=== PATIENT | female | born 1960 | race Hispanic/Latino ===

== ENCOUNTER 2016-07-08 08:24 | Day surgery (SDC) | payer MEDICAID ==
[2016-04-10 08:13] VITALS: BMI 20.5
[2016-07-08] MEDS: Lactated Ringer's 500 ML IV ONE (11:22)
[2016-07-08 11:59] VITALS: O2SAT 98
[2016-07-08] MEDS ORDERED: Midazolam 2 MG/2 ML VIAL ONE (12:25)
[2016-07-08] MEDS ORDERED: Propofol 10 mg/ml Inj (20 ML) ONE (12:25)
[2016-07-08 13:18] VITALS: BP 124/67; PULSE 64; RESP 18; TEMP 98
== END 2016-07-08 13:27 | disposition home or self-care (01) ==
LOC: H.ENDO 08:24
PROVIDERS: ATTEND Internal Medicine Gastroenterology
DX: K30 Functional dyspepsia (principal); K31.9 Disease of stomach and duodenum, unspecified; K31.811 Angiodysplasia of stomach and duodenum with bleeding; K20.9 Esophagitis, unspecified